=== PATIENT | male | born 1955 | race Caucasian/White ===

== ENCOUNTER 2017-01-12 15:54 | Emergency (ER) | payer SELFPAY ==
[~2017-01-12] VITALS: Ht 172.7 cm; Wt 54.8 kg
[~2017-01-12 15:54] MED LIST: AMOXICILLIN875 MG PO; MOTRIN600 MG PO
[2017-01-12 17:25] LABS: HEMATOCRIT 49.6 % (38.0-50.0); MCH 32.9 PG (29.0-34.0); MCHC 33.3 G/DL (30.0-36.0); MEAN PLAT.VOLUME 10.8 uM^3 (9.0-12.4); PLATELET COUNT 225 K/uL (156-360); RBC DIS.WIDTH-CV 13.5 % (11.8-14.6); RBC DIS.WIDTH-SD 49.1 % (39-53); RED BLOOD COUNT 5.01 M/uL (4.00-5.50); WHITE BLOOD COUNT 10.2 K/uL (4.1-10.2)
[2017-01-12 17:33] LABS: CHLORIDE 96 mEq/L (99-109); POTASSIUM 3.2 mEq/L (3.7-5.4); SODIUM 138 mEq/L (136-147)
[2017-01-12 17:35] LABS: GLUCOSE 106 mg/dL (70-99)
[2017-01-12 17:36] LABS: ANION GAP 16 MEQ/L (2-14)
[2017-01-12] MEDS ORDERED: VENTOLIN HFA18 GM IH (17:36)
[2017-01-12] MEDS ORDERED: PREDNISONE20 MG PO (17:36)
[2017-01-12] MEDS ORDERED: LEVOFLOXACIN750 MG PO (17:36)
[2017-01-12 17:38] LABS: GFR ESTIMATE (CALCULATED) > 59 mL/min/
[2017-01-12 17:39] LABS: UREA NITROGEN (BUN) 18 mg/dL (9-23)
[2017-01-12 17:58] VITALS: BP 142/96
== END 2017-01-12 18:06 | disposition home or self-care (01) ==
LOC: EME 15:54
DX: J18.9 Pneumonia, unspecified organism (principal); J06.9 Acute upper respiratory infection, unspecified; F17.200 Nicotine dependence, unspecified, uncomplicated
CPT/HCPCS: 71020; 80048; 85027; 99281; 99283; J7512

== ENCOUNTER 2017-10-26 13:28 | Emergency (ER) | payer OTHER ==
[~2017-10-26] VITALS: Ht 172.7 cm; Wt 57.7 kg
[~2017-10-26 13:28] MED LIST changes: +LEVOFLOXACIN750 MG PO; +PREDNISONE20 MG PO; +VENTOLIN HFA18 GM IH
[2017-10-26 15:40] LABS: HEMATOCRIT 47.7 % (38.0-50.0); HEMOGLOBIN 16.5 G/DL (12.5-16.6); MCH 33.3 PG (29.0-34.0); MCHC 34.6 G/DL (30.0-36.0); MCV 96.4 FL (86-99); PLATELET COUNT 252 K/uL (156-360); RBC DIS.WIDTH-CV 12.7 % (11.8-14.6); RBC DIS.WIDTH-SD 45.2 % (39-53); RED BLOOD COUNT 4.95 M/uL (4.00-5.50); WHITE BLOOD COUNT 12.5 K/uL (4.1-10.2)
[2017-10-26 15:51] LABS: CHLORIDE 101 mEq/L (99-109); POTASSIUM 4.8 mEq/L (3.7-5.4); SODIUM 140 mEq/L (136-147)
[2017-10-26 15:53] LABS: GLUCOSE 88 mg/dL (70-99)
[2017-10-26 15:57] LABS: CREATININE 0.8 mg/dL (0.6-1.3); GFR ESTIMATE (CALCULATED) > 59 mL/min/ (58.99-99999)
[2017-10-26 15:58] LABS: UREA NITROGEN (BUN) 10 mg/dL (9-23)
[2017-10-26] MEDS ORDERED: VICODIN 5-3001 EACH PO (16:14)
[2017-10-26] MEDS ORDERED: FLEXERIL10 MG PO (16:14)
[2017-10-26 17:33] VITALS: BP 135/87
== END 2017-10-26 17:59 | disposition home or self-care (01) ==
LOC: EME 13:28
PROVIDERS: Emergency Medicine Emergency Medical Services
PROC: 3E0234Z Introduction of Serum, Toxoid and Vaccine into Muscle, Percutaneous Approach (ICD-10-PCS; principal; 2017-10-26)
DX: S42.032A Displaced fracture of lateral end of left clavicle, initial encounter for closed fracture (principal); S01.01XA Laceration without foreign body of scalp, initial encounter; S06.0X0A Concussion without loss of consciousness, initial encounter; W01.198A Fall on same level from slipping, tripping and stumbling with subsequent striking against other object, initial encounter; Z23 Encounter for immunization; R94.31 Abnormal electrocardiogram [ECG] [EKG]; F17.200 Nicotine dependence, unspecified, uncomplicated
CPT/HCPCS: 70450; 73030; 80048; 85027; 93005; 99281; 99285